=== PATIENT | male | born 1995 | race Caucasian/White ===

== ENCOUNTER 2020-04-01 15:23 | Emergency (ER) | payer SELFPAY ==
[~2020-04-01] VITALS: Ht 185.4 cm; Wt 102.3 kg
[2020-04-01 16:18] LABS: HEMATOCRIT 47.5 % (42.0-52.0); HEMOGLOBIN 16.4 g/dL (13.5-18.0); MEAN CELL VOLUME 81 fl (78-100); MEAN CORPUSCULAR HEMOGLOBIN 28 pg (27-31); MEAN CORPUSCULAR HGB CONC 35 g/dL (33-37); MEAN PLATELET VOLUME 9.4 fl (7.4-10.4); PLATELET COUNT 396 K/mm3 (130-400); RED BLOOD COUNT 5.85 M/mm3 (4.20-5.60); RED CELL DISTRIBUTION WIDTH 13.1 % (11.5-14.5); WHITE BLOOD COUNT 11.7 K/mm3 (4.8-10.8)
[2020-04-01 16:29] LABS: LYMPHOCYTE 37 % (20-51); MONOCYTE 4 % (3-10); NEUTROPHILS 50 % (42-75)
[2020-04-01] MEDS ORDERED: PREDNISONE20 M1 PO (16:49)
[2020-04-01 17:39] VITALS: BP 136/82
== END 2020-04-01 17:05 | disposition home or self-care (01) ==
LOC: ED 15:23
PROVIDERS: Family Medicine
DX: J45.909 Unspecified asthma, uncomplicated (principal); Z79.52 Long term (current) use of systemic steroids

== ENCOUNTER 2020-04-24 18:51 | Emergency (ER) | payer OTHER ==
[~2020-04-24] VITALS: Ht 185.4 cm; Wt 99.1 kg
[~2020-04-24 18:51] MED LIST: PREDNISONE20 M1 PO
[2020-04-24] MEDS ORDERED: TYLENOL325 M1 PO (19:03)
[2020-04-24] MEDS ORDERED: GOOD NEIGHBOR200 M1 PO (19:04)
[2020-04-24] MEDS ORDERED: RT ALBUTEROL CC18 GM IH (19:09)
[2020-04-24] MEDS ORDERED: PREDNISONE20 MG PO (19:32)
[2020-04-24] MEDS ORDERED: PROAIR HFA0.09 MG/AC IH (19:33)
[2020-04-24 19:50] VITALS: BP 128/82
== END 2020-04-24 19:51 | disposition home or self-care (01) ==
LOC: ED 18:51
DX: J45.909 Unspecified asthma, uncomplicated (principal); F17.210 Nicotine dependence, cigarettes, uncomplicated

== ENCOUNTER 2020-04-28 03:31 | Emergency (ER) | payer OTHER ==
[~2020-04-28 03:31] MED LIST changes: +GOOD NEIGHBOR200 M1 PO; +PREDNISONE20 MG PO; +PROAIR HFA0.09 MG/AC IH; +RT ALBUTEROL CC18 GM IH; +TYLENOL325 M1 PO
[2020-04-28 04:51] LABS: EOS # 0.1 (0.04-0.40); EOS % 1.2 % (0.0-4.0); HEMATOCRIT 43.1 % (42.0-52.0); MEAN CELL VOLUME 93 fl (78-100); MEAN CORPUSCULAR HEMOGLOBIN 28 pg (27-31); MEAN CORPUSCULAR HGB CONC 30 g/dL (33-37); MEAN PLATELET VOLUME 10.8 fl (7.4-10.4); MONO # 0.2 (0.20-0.80); NEU # 2.2 (1.40-6.50); PLATELET COUNT 212 K/mm3 (130-400); RED BLOOD COUNT 4.62 M/mm3 (4.20-5.60); RED CELL DISTRIBUTION WIDTH 13.4 % (11.5-14.5); WHITE BLOOD COUNT 5.6 K/mm3 (4.8-10.8)
[2020-04-28 05:06] LABS: ALBUMIN 3.3 g/dL (3.5-5.0)
[2020-04-28 05:07] LABS: CALCIUM 9.7 mg/dL (8.3-10.5)
[2020-04-28 05:08] LABS: POTASSIUM 6.7 mmol/L (3.5-5.1); TOTAL PROTEIN 5.3 g/dL (6.4-8.3)
[2020-04-28 05:10] LABS: TOTAL BILIRUBIN 0.2 mg/dL (0.2-1.2)
== END 2020-04-28 09:28 | disposition expired ==
LOC: ED 03:31
PROVIDERS: Nurse Practitioner Family
DX: I46.9 Cardiac arrest, cause unspecified (principal); J45.909 Unspecified asthma, uncomplicated; F17.290 Nicotine dependence, other tobacco product, uncomplicated; Z20.828 Contact with and (suspected) exposure to other viral communicable diseases
CPT/HCPCS: J0171